=== PATIENT | male | born 1990 | race Two or more races ===

== ENCOUNTER 2023-09-07 08:13 | Emergency (ER) | payer BC, SELFPAY ==
[2023-09-07 08:21] VITALS: BP 143/85; PULSE 95; TEMP 36.6; O2SAT 98; BMI 38.4
--- NOTE | 2023-09-07 08:51 | XR_ITS ---
The [address] [address] Patient Name: BASILIO CARTWRIGHT MRN: [id number] date: 1990 Sex: M Assigned Patient Location: ER Current Patient Location: ER Accession/Order Number: [id number] Exam Date: 09/07/2023 09:17 Report Date: 09/07/2023 09:49 At the request of: LEONCIO FERNANDEZ Procedure: XR hip RT 2V w/ pelvis EXAM: XR hip RT 2V w/ pelvis HISTORY: pain, fall COMPARISON: None TECHNIQUE: Two-view right hip and AP view pelvis study was performed with 3 images obtained in total. FINDINGS: Small somewhat linear longitudinal lucency overlying the right femoral head and acetabular region which is nonspecific. The finding may be artifactually created. Possibility of nondisplaced right acetabular fracture difficult to exclude entirely. Right femoral neck fracture be unlikely. Sacroiliac joints appear grossly unremarkable. Visualized lower lumbar spine appears grossly unremarkable. Soft tissues are grossly within normal limits. XR/XR hip RT 2V w/ pelvis IMPRESSION: Possibility of undisplaced right acetabular fracture difficult to exclude entirely. Correlate clinically. Follow-up as needed. Electronically authenticated by: JULIO ESQUIVEL Date: 09/07/2023 09:49
--- NOTE | 2023-09-07 10:10 | CT_ITS ---
The [address] [address] Patient Name: BASILIO CARTWRIGHT MRN: [id number] date: 1990 Sex: M Assigned Patient Location: ER Current Patient Location: ER Accession/Order Number: [id number] Exam Date: 09/07/2023 10:03 Report Date: 09/07/2023 10:29 At the request of: LEONCIO FERNANDEZ Procedure: CT pelvis wo con EXAMINATION: CT pelvis wo con HISTORY: abn xray, right hip pain COMPARISON: Plain x-ray same day TECHNIQUE: Multi-planar CT images were created without IV contrast. Dose reduction techniques were achieved by using automated exposure control and/or adjustment of mA and/or kV according to patient size and/or use of iterative reconstruction technique. FINDINGS: BONES: Acute posterior column fracture involving the right acetabulum with the fracture fragment measuring 3.2 x 1.0 cm on coronal image #30. Minimal displacement of one millimeter. No angulation. Subtle lucency in the anterior column on axial image 57 could represent a nondisplaced second fracture. The proximal right femur is intact without fracture. No dislocation. SOFT TISSUES: Negative. No visible soft tissue swelling. EFFUSION: None visible. OTHER: Nonobstructive bowel gas pattern. Normal appendix. CT/CT pelvis wo con IMPRESSION: Acute 3.2 x 1.0 cm fracture posterior column of the right acetabulum Suspected nondisplaced fracture of the anterior column of the right acetabulum Electronically authenticated by: ALEXANDRE RODRIGUEZ Date: 09/07/2023 10:29
--- NOTE | 2023-09-07 10:47 | ED_ITS ---
HPI HPI - General Adult General Chief complaint: Extremity Injury, Lower Stated complaint: LOWER EXTREMITY PAIN Time Seen by Provider: 09/07/23 08:20 Source: patient Mode of arrival: walk-in Limitations: no limitations History of Present Illness HPI narrative: 32-year-old male to the emergency department with chief complaint of right-sided hip pain. Patient reports that he jumped over a small [place] yesterday. He landed on his right leg. Reports last night initially just had pain in his right ankle. Today woke up and he has severe pain in his right hip. He denies any other injuries. He reports painful to walk. He was able to bear weight. Related Data Allergies Allergy/AdvReac Type Severity Reaction Status Date / Time No Known Drug Allergies Allergy Verified 09/07/23 08:21 Opioid HPI Opioid Management Most Recent Opioid Data: Last Pain Scale 6 09/07/23 08:25 Last ED Pain Assessment 09/07/23 08:25 Review of Systems ROS Status of ROS 10 or more systems reviewed and unremark able except as noted in history and below Exam Narrative Exam Narrative: VITALS: I have reviewed the triage vital signs. GENERAL: Well developed, well appearing adult in no acute distress. NEURO: Alert and oriented. Moves all extremities. Face is symmetric and expressive. EYES: PERRL. No scleral icterus or conjunctival injection. No discharge. HENT: Normocephalic, atraumatic. Hearing is grossly intact. Nares grossly patent and without discharge. Mucous membranes moist. NECK: No JVD. Patient moves neck without restriction. Right Lower Extremity: DP and PT pulses intact. Limb is similar color and temperature to the contralateral limb. No swelling. No ecchymosis. No medial malleolus tenderness. No lateral malleolus tenderness. No tenderness at the base of the fifth metatarsal. No midfoot tenderness. No fibular head tenderness. Sensation is intact over the foot and lower leg. Dorsiflexion/plantar flexion, knee flexion/extension intact by strength testing. Range of motion. Tenderness in the pelvis. Pelvis is stable. SKIN: Warm and dry. Normal turgor. No rash or lesions appreciated. PSYCH: Mood, affect, and interaction is appropriate to the setting. Constitutional Vital Signs, click to edit/add: Last Vital Signs Temp 97.8 F 09/07/23 08:21 Pulse 88 09/07/23 10:50 Resp 14 09/07/23 10:50 BP 147/105 H 09/07/23 10:50 Pulse Ox 98 09/07/23 10:50 O2 Del Method Room Air 09/07/23 10:50 Course Vital Signs Vital signs: Vital Signs Temperature 97.8 F 09/07/23 08:21 Pulse Rate 95 H 09/07/23 08:21 Respiratory Rate 18 09/07/23 08:21 Blood Pressure 143/85 H 09/07/23 08:21 Pulse Oximetry 98 09/07/23 08:21 Temperature 97.8 F 09/07/23 08:21 Pulse Rate 88 09/07/23 10:50 Respiratory Rate 14 09/07/23 10:50 Blood Pressure 147/105 H 09/07/23 10:50 Pulse Oximetry 98 09/07/23 10:50 Oxygen Delivery Method Room Air 09/07/23 10:50 Medical Decision Making MDM Narrative Medical decision making narrative: 54-lmod[age]-wal male to the emergency department with chief complaint of right hip pain. Vital stable, the patient is afebrile. His right lower extremity is neurovascularly intact. We'll obtain an x-ray of the hip and pelvis. Question of fracture, we'll obtain a CT scan for better evaluation. Patient does have acetabular fracture of the anterior posterior column. We will review with the orthopedic surgeon signal and communications maintainer Dr. Conklin. Case reviewed with ortho surgery. Nonweightbearing likely for three months. Placed on crutches. He has a follow-up appointment on Thursday at 8:30 AM. Tylenol or ibuprofen for discomfort at home. Return motions were discussed. All questions were answered. The patient was discharged home. Imaging Data CT scan - abdomen: Radiologist's impression: ITS Impressions Hip/Pelvis X-Ray 09/07/23 08:51 IMPRESSION: Possibility of undisplaced right acetabular fracture difficult to exclude entirely. Correlate clinically. Follow-up as needed. Electronically authenticated by: JULIO ESQUIVEL Date: 09/07/2023 09:[address] 09/07/23 10:10 IMPRESSION: Acute 3.2 x 1.0 cm fracture posterior column of the right acetabulum Suspected nondisplaced fracture of the anterior column of the right acetabulum Electronically authenticated by: ALEXANDRE RODRIGUEZ Date: 09/07/2023 10:29 Discharge Plan Discharge Stand Alone Forms: Portal Instructions Chief Complaint: Extremity Injury, Lower Clinical Impression: Acetabulum fracture, right Patient Disposition: Home, Self-Care Time of Disposition Decision: 10:54 Condition: Good Mode of Transportation: Private Vehicle Print Language: Lao Instructions: Crutch Instructions (ED), Pelvic Fracture (ED) Referrals: Physician,Non-Staff, [Primary Care Provider] - 1 week Drew Conklin MD [Physician] - 1 week (YOU HAVE AN APPOINTMENT AT 0830 on 09/13. DO NOT WALK ON RIGHT LEG, USE CRUTCHES. )
[2023-09-07 10:50] VITALS: BP 147/105; PULSE 88; O2SAT 98
[2023-09-07 11:23] VITALS: PULSE 85; O2SAT 98
== END 2023-09-07 11:28 | disposition home or self-care (01) ==
PROVIDERS: Emergency Provider Student in an Organized Health Care Education/Training Program
DX: S32.434A Nondisplaced fracture of anterior column [iliopubic] of right acetabulum, initial encounter for closed fracture (principal); W19.XXXA Unspecified fall, initial encounter
CPT/HCPCS: 72192; 73502; 99284

== ENCOUNTER 2023-09-14 09:25 | Outpatient (OUT) | payer BC, SELFPAY ==
--- NOTE | 2023-09-14 | XR_ITS ---
The [address] [address] Patient Name: BASILIO CARTWRIGHT MRN: [id number] date: 1990 Sex: M Assigned Patient Location: Current Patient Location: Accession/Order Number: [id number] Exam Date: 09/14/2023 09:30 Report Date: 09/15/2023 06:30 At the request of: ALIVIA CABRERA Procedure: XR hip RT min 2V PROCEDURE: XR hip RT min 2V HISTORY: RIGHT HIP PAIN COMPARISON: XR hip right 09/07/2023, CT pelvis 09/07/2023 FINDINGS: BONES:Stable alignment of large, nondisplaced fracture of posterior rim of right acetabulum. Intact femoral head and neck. SOFT TISSUES:No visible soft tissue swelling. EFFUSION:None visible. OTHER: Negative. XR/XR hip RT min 2V IMPRESSION: 1. Stable, nondisplaced posterior rim fracture of right acetabulum. Electronically authenticated by: ALIVIA CARR Date: 09/15/2023 06:30
== END 2023-09-14 09:26 | disposition home or self-care (01) ==
LOC: EC 09:25
PROVIDERS: Visit Provider Orthopaedic Surgery
DX: M25.551 Pain in right hip (principal); S32.491D Other specified fracture of right acetabulum, subsequent encounter for fracture with routine healing
CPT/HCPCS: 73502

== ENCOUNTER 2024-01-12 12:06 | Emergency (ER) | payer BC, SELFPAY ==
[2024-01-12 12:11] VITALS: BP 173/88; PULSE 111; TEMP 36.7; O2SAT 96; BMI 36.9
--- OUTSIDE RECORDS SUMMARY | 2024-01-12 12:14 | XMS_ITS | CCD ---
Author Organization [facility] Inform ion Partnership [facility] Care Team Providers Care Receiving Barn Custodian Name Role Phone NO FAMILY DOCTOR, NO FAMILY DOCTOR Unavailable Unavailable SANDRA PORTER Unavailable Unavailable KOTA STONE Attending Unavailable NO PCP, NO PCP Primary Care Unavailable Allergies Allergy Classification Reported Allergen(s) Allergy Type Date of Onset Reaction(s) Facility (1 source) No Known Medication Allergies; Translations: [No Known Medication Allergies] Propensity to adverse reactions (disorder) [facility] Rep[facility] Problems Active Problems Problem Classification Problem Date Documented Date Episodic/Chronic Skin and subcutaneous tissue infections (3 sources) Pilonidal cyst with abscess; Translations: [Abscess] Onset: 11-13-2023 Episodic Unclassified (2 sources) Poisoning by heroin, accidental (unintentional), init encntr / T40.1X1A(ICD-9) Onset: 07-26-2017 Unclassified (1 source) Nicotine dependence, unspecified, uncomplicated / F17.200(ICD-9) Onset: 07-26-2017 Unclassified (1 source) Ot places as the place of occurrence of the external cause / Y92.89(ICD-9) Onset: 07-26-2017 Unclassified (1 source) Altered mental status, unspecified / R41.82(ICD-9) Onset: 07-26-2017 Past or Other Problems Problem Classification Problem Date Documented Da te Episodic/Chronic Unclassified (1 source) Altered mental status, unspecified; Translations: [Altered mental status, unspecified] Onset: 07-26-2017 Episodic Unclassified (1 source) Poisoning by heroin, accidental (unintentional), init encntr; Translations: [Poisoning by heroin, accidental (unintentional), init encntr] Onset: 07-26-2017 Results Test Name Value Interpretation Reference Range Facil ity Dipstick and Microscopicon 0 2-22-2022 Appearance (U) Clear Normal Clear [facility] Comment on above: Order Comment: Name Collection Type:: Voided Performed By: #### A DDONUAPLUS #### [address] Bacteria,Urine None Seen Normal None Seen [facility] Comment on above: Order Comment: Name Collection Type:: Voided Performed By: #### A DDONUAPLUS #### [place] [address] [place] Bilirubin,Urine Negative Normal Negative [facility] Comment on above: Order Comment: Name Collection Type:: Voided Performed By: #### A DDONUAPLUS #### [address] Color (U) Yellow Normal Yellow [facility] Comment on above: Order Comment: Name Collection Type:: Voided Performed By: #### A DDONUAPLUS #### [place] [address] [place] Glucose Ql (U) Normal Normal Normal [facility] Comment on above: Order Comment: Name Collection Type:: Voided Performed By: #### A DDONUAPLUS #### [place] [address] [place] Hyaline Casts,Urine 9-19 High 0-8 [facility] Comment on above: Order Comment: Name Collection Type:: Voided Result Comment: PERF ORMED BY: [place] [address] PATHOLOGIST RN BIRTHING JUAN LAY M.D. Performed By: #### A DDONUAPLUS #### [facility] [address] [place] [address] [place] Ketones Ql (U) Trace High Negative [facility] Comment on above: Order Comment: Name Collection Type:: Voided Performed By: #### A DDONUAPLUS #### [place] [address] [place] Leukocyte esterase Test strip Ql (U) Negative Normal Negative [facility] Comment on above: Order Comment: Name Collection Type:: Voided Performed By: #### A DDONUAPLUS #### [facility] [address] [place] [address] [place] Nitrite,Urine Negative Normal Negative [facility] Comment on above: Order Comment: Name Collection Type:: Voided Performed By: #### A DDONUAPLUS #### [place] [address] [place] Occult Blood,Urine Negative Normal Negative [facility] Comment on above: Order Comment: Name Collection Type:: Voided Result Comment: PERF ORMED BY: [place] [address] PATHOLOGIST RN BIRTHING JUAN LAY M.D. Performed By: #### A DDONUAPLUS #### [address] pH (U) 5.5 [pH] Normal 5.0-9.0 [facility] Comment on above: Order Comment: Name Collection Type:: Voided Performed By: #### A DDONUAPLUS #### [address] Protein (U) [Mass/Vol] 30 mg/dL High Negative [facility] Comment on above: Order Comment: Name Collection Type:: Voided Performed By: #### A DDONUAPLUS #### [facility] [address] [place] [address] RBC,Urine 1-2 Normal 0-4 [facility] Comment on above: Order Comment: Name Collection Type:: Voided Performed By: #### A DDONUAPLUS #### [address] Renal Epithelial Cells,Urine None Seen Normal 0-1 [facility] Comment on above: Order Comment: Name Collection Type:: Voided Performed By: #### A DDONUAPLUS #### [facility] [address] [place] [address] [place] Specificy [place],Urine 1.019 Normal 1.001-1.030 [facility] Comment on above: Order Comment: Name Collection Type:: Voided Performed By: #### A DDONUAPLUS #### [facility] [address] [place] [address] [place] Squamous Epithelial Cell,Urine 1-2 Normal 0-2 [facility] Comment on above: Order Comment: Name Collection Type:: Voided Performed By: #### A DDONUAPLUS #### [facility] [address] Urobilinogen,Urine Normal Normal Normal [facility] Comment on above: Order Comment: Name Collection Type:: Voided Performed By: #### A DDONUAPLUS #### [facility] [address] WBC,Urine 5-9 High 0-4 [facility] Comment on above: Order Comment: Name Collection Type:: Voided Performed By: #### A DDONUAPLUS #### [facility] [address] Encounters Encounter Date Encounter Type Care Provider Facility Start: 11-13-2023 End: 11-13-2023 Emergency department patient visit [facility] Start: 12-24-2022 ambulatory Facility:Jaylon Salazaril Start: 07-26-2017 End: 07-26-2017 Emergency department patient visit NO FAMILY DOCTOR NO FAMILY DOCTOR Facility:[facility] Payers Date Payer Category Payer Self-pay 1990 Unknown [id number] Summary Purpose Family History No Family History Records FoundNo Family History Records FoundNo Family History Records FoundNo Family History Records Found Advance Directives No Advanced Directives Records FoundNo Advanced Directives Records FoundNo Advanced Directives Records FoundNo Advanced Directives Records Found Additional Source Comments (unrecognized sect ion and content) No Status Records FoundNo Status Records FoundNo Status Records FoundNo Status Records Found INFORMATION SOURCE (unrecogn ized section and content) DATE CREATED AUTHOR 11/06/2017 [facility] DATE CREATED AUTHOR AUTHOR'S ORGANIZ ATION 07/15/2021 [facility] DATE CREATED AUTHOR AUTHOR'S ORGANIZ ATION 11/15/2023 [facility] DATE CREATED AUTHOR AUTHOR'S GUME ATION 01/10/2024 [facility] FOR RECORDS PERTAINING TO PATIENTS WHO ARE OR HAVE BEEN ENROLLED IN A CHEMICAL DEPENDENCY/SUBSTANCEABUSE PROGRAM, SOME INFORMATION MAY BE OMITTED. This clinical summary was aggregated from multiple sources. Caution should be exercised in using it in the provision of clinical care. This summary normalizes information from multiple sources, and as a consequence, information in this document may materially change the coding, format and clinical context of patient data. In addition, data may be omitted in some cases. CLINICAL DECISIONS SHOULD BE BASED ON THE PRIMARY CLINICAL RECORDS. [facility]. provides no warranty or guarantee of the accuracy or completeness of information in this document.
--- NOTE | 2024-01-12 12:22 | ED_ITS ---
HPI HPI - General Adult General Chief complaint: Allergic Reaction Stated complaint: EYE IRRITATION AND SWELLING Time Seen by Provider: 01/12/24 12:07 History of Present Illness HPI narrative: Patient was seen complaining of facial swelling periorbital swelling, rash and itching. He has a rash that started on the right arm and is spread to the chest and now face he also has some on the back of his neck. He was cutting weeds and things in the yard over the weekend and then started Thursday getting this rash and when he woke up today it was worse so he came in. He was worried about the swelling around the eyes so he came in for further evaluation. He also feels like his throat is slightly itchy. No shortness of breath no wheezing no hypoxia no stridor. No other exposure to known allergies or anything new. Alert and oriented resting comfortably in the bed. Related Data Previous Rx's ?Medication ?Instructions ?Recorded prednisone 20 mg tablet 20 mg PO BID see taper #20 tabs 01/12/24 Allergies Allergy/AdvReac Type Severity Reaction Status Date / Time No Known Drug Allergies Allergy Verified 09/07/23 08:21 Opioid HPI Opioid Management Most Recent Opioid Data: Last Pain Scale 6 09/07/23 08:25 Review of Systems ROS Status of ROS 10 or more systems reviewed and unremark able except as noted in history and below Exam Narrative Exam Narrative: General: alert, no acute distress Cardiovascular: regular rate and rhythm, normal peripheral perfusion. Respiratory: Lungs CTA, respirations non labored. Extremities: no deformity, no trauma. Neurological: oriented x 4, LOC appropriate for age. Patient's skin has maculopapular erythematous rash on the right arm left side of the chest back of the neck and face. Mild periorbital edema. No uvular edema no stridor or respiratory distress or wheezing. Rash is sometimes in the linear fashion consistent with most likely poison tamy. Constitutional Vital Signs, click to edit/add: Last Vital Signs Temp 98.1 F 01/12/24 12:11 Pulse 111 H 01/12/24 12:11 Resp 18 01/12/24 12:11 BP 173/88 H 01/12/24 12:11 Pulse Ox 96 01/12/24 12:11 O2 Del Method Room Air 01/12/24 12:11 Course Vital Signs Vital signs: Vital Signs Temperature 98.1 F 01/12/24 12:11 Pulse Rate 111 H 01/12/24 12:11 Respiratory Rate 18 01/12/24 12:11 Blood Pressure 173/88 H 01/12/24 12:11 Pulse Oximetry 96 01/12/24 12:11 Oxygen Delivery Method Room Air 01/12/24 12:11 Temperature 98.1 F 01/12/24 12:11 Pulse Rate 111 H 01/12/24 12:11 Respiratory Rate 18 01/12/24 12:11 Blood Pressure 173/88 H 01/12/24 12:11 Pulse Oximetry 96 01/12/24 12:11 Oxygen Delivery Method Room Air 01/12/24 12:11 Medical Decision Making MDM Narrative Medical decision making narrative: This is most likely a contact dermatitis like poison tamy or poison oak due to the patient needing over the weekend and then coming down with this itchy rash. Patient will be started on steroids here in the ED and sent home with a taper. Return to ED if worsening symptoms otherwise follow-up with family doctor. Differential Diagnosis Differential Diagnosis: Poison tamy poison oak poison sumac Discharge Plan Discharge Stand Alone Forms: Work/School Release, Portal Instructions Chief Complaint: Allergic Reaction Clinical Impression: Contact dermatitis Patient Disposition: Home, Self-Care Time of Disposition Decision: 12:18 Condition: Good Mode of Transportation: Private Vehicle Prescriptions / Home Meds: New prednisone 20 mg tablet 20 mg PO BID MDD follow taper instructions plz Qty: 20 0RF Rx Instructions: Taper and dispense as follows: 60 mg po daily x 2 days 50 mg x 2 days 40 mg x 2 days 30 mg x 2 days 20 mg x 2 days 10 mg x 2 days Print Language: Tongan Instructions: Contact Dermatitis (ED) Referrals: Physician,Non-Staff, MD [Primary Care Provider] - 1 week
[2024-01-12] MEDS: DEXAMETHASONE 4 MG TABLET 10 MG PO (12:37)
[2024-01-12 12:39] VITALS: BP 136/88; PULSE 96; O2SAT 98
== END 2024-01-12 12:40 | disposition home or self-care (01) ==
PROVIDERS: Emergency Provider Emergency Medicine
DX: L25.9 Unspecified contact dermatitis, unspecified cause (principal)
CPT/HCPCS: 99283; J8540

== ENCOUNTER 2024-04-18 13:16 | Emergency (ER) | payer MEDICAID, SELFPAY ==
[2024-04-18 13:27] VITALS: BP 156/105; PULSE 98; TEMP 36.5; O2SAT 99; BMI 35.4
--- OUTSIDE RECORDS SUMMARY | 2024-04-18 13:35 | XMS_ITS | CCD ---
Author Organization [facility] Inform ion Partnership [facility] Care Team Providers Care School Director Name Role Phone NO FAMILY DOCTOR, NO FAMILY DOCTOR Unavailable Unavailable SANDRA PORTER Unavailable Unavailable KOTA STONE Attending Unavailable NO PCP, NO PCP Primary Care Unavailable Allergies Allergy Classification Reported Allergen(s) Allergy Type Date of Onset Reaction(s) Facility (1 source) No Known Medication Allergies; Translations: [No Known Medication Allergies] Propensity to adverse reactions (disorder) [facility] Repository Problems Active Problems Problem Classification [...] 0 2-22-2022 Appearance (U) Clear Normal Clear [facility] Comment on above: Order Comment: Name Collection Type:: Voided Performed By: #### A DDONUAPLUS #### [address] Bacteria,Urine None Seen Normal None Seen [facility] Comment on above: Order Comment: Name Collection Type:: Voided Performed By: #### A DDONUAPLUS #### [place] [address] [place] Bilirubin,Urine Negative Normal Negative [facility] Comment on above: Order Comment: Name Collection Type:: Voided Performed By: #### A DDONUAPLUS #### [address] Color (U) Yellow Normal Yellow [facility] Comment on above: Order Comment: Name Collection Type:: Voided Performed By: #### A DDONUAPLUS #### [place] [address] [place] Glucose Ql (U) Normal Normal Normal [facility] Comment on above: Order Comment: Name Collection Type:: Voided Performed By: #### A DDONUAPLUS #### [place] [address] [place] Hyaline Casts,Urine 9-19 High 0-8 [facility] Comment on above: Order Comment: Name Collection Type:: Voided Result Comment: PERF ORMED BY: [place] [address] PATHOLOGIST CLOTHING MANAGER JUAN LAY M.D. Performed By: #### A DDONUAPLUS #### [facility] [address] [place] [address] [place] Ketones Ql (U) Trace High Negative [facility] Comment on above: Order Comment: Name Collection Type:: Voided Performed By: #### A DDONUAPLUS #### [place] [address] [place] Leukocyte esterase Test strip Ql (U) Negative Normal Negative [facility] Comment on above: Order Comment: Name Collection Type:: Voided Performed By: #### A DDONUAPLUS #### [facility] [address] [place] [address] [place] Nitrite,Urine Negative Normal Negative [facility] Comment on above: Order Comment: Name Collection Type:: Voided Performed By: #### A DDONUAPLUS #### [place] [address] [place] Occult Blood,Urine Negative Normal Negative [facility] Comment on above: Order Comment: Name Collection Type:: Voided Result Comment: PERF ORMED BY: [place] [address] PATHOLOGIST CLOTHING MANAGER JUAN LAY M.D. Performed By: #### A DDONUAPLUS #### [address] pH (U) 5.5 [pH] Normal 5.0-9.0 [facility] Comment on above: Order Comment: Name Collection Type:: Voided Performed By: #### A DDONUAPLUS #### [address] Protein (U) [Mass/Vol] 30 mg/dL High Negative [facility] Comment on above: Order Comment: Name Collection Type:: Voided Performed By: #### A DDONUAPLUS #### [facility] [address] [place] [address] RBC,Urine 1-2 Normal 0-4 [facility] Comment on above: Order Comment: Name Collection Type:: Voided Performed By: #### A DDONUAPLUS #### [address] Renal Epithelial Cells,Urine None Seen Normal 0-1 [facility] Comment on above: Order Comment: Name Collection Type:: Voided Performed By: #### A DDONUAPLUS #### [facility] [address] [place] [address] [place] Specificy [place],Urine 1.019 Normal 1.001-1.030 [facility] Comment on above: Order Comment: Name Collection Type:: Voided Performed By: #### A DDONUAPLUS #### [facility] [address] [place] [address] [place] Squamous Epithelial Cell,Urine 1-2 Normal 0-2 [facility] Comment on above: Order Comment: Name Collection Type:: Voided Performed By: #### A DDONUAPLUS #### [facility] [address] Urobilinogen,Urine Normal Normal Normal [facility] Comment on above: Order Comment: Name Collection Type:: Voided Performed By: #### A DDONUAPLUS #### [facility] [address] WBC,Urine 5-9 High 0-4 [facility] Comment on above: Order Comment: Name Collection Type:: Voided Performed By: #### A DDONUAPLUS #### [facility] [address] Encounters Encounter Date Encounter Type Care Provider Facility Start: 11-13-2023 End: 11-13-2023 Emergency department patient visit [facility] Start: 12-24-2022 ambulatory Facility:Jaylon Salazaril Start: 07-26-2017 End: 07-26-2017 Emergency department patient visit NO FAMILY DOCTOR NO FAMILY DOCTOR Facility:[facility] Payers Date Payer Category Payer Self-pay 1990 Unknown [id number] Summary Purpose Family History No Family History [...] section and content) DATE CREATED AUTHOR 11/06/2017 [facility] DATE CREATED AUTHOR AUTHOR'S ORGANIZ ATION 07/15/2021 [facility] DATE CREATED AUTHOR AUTHOR'S ORGANIZ ATION 11/15/2023 [facility] DATE CREATED AUTHOR AUTHOR'S GUME ATION 01/10/2024 [facility] FOR RECORDS PERTAINING TO PATIENTS WHO [...] BE BASED ON THE PRIMARY CLINICAL RECORDS. [facility] [place] [facility] [employer] [facility]. provides no warranty or guarantee of the accuracy or completeness of information in this document.
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
[2024-04-18] MEDS: METHYLPREDNISOLONE SOD SUCC PF 125 MG/2 ML VIAL IM (13:46)
== END 2024-04-18 13:52 | disposition home or self-care (01) ==
PROVIDERS: Emergency Provider Emergency Medicine
DX: L25.9 Unspecified contact dermatitis, unspecified cause (principal)
CPT/HCPCS: 96372; 99284; J2919

== ENCOUNTER 2024-08-18 07:59 | Emergency (ER) | payer MEDICAID, SELFPAY ==
[2024-08-18 08:06] VITALS: BP 157/96; PULSE 90; TEMP 37.1; O2SAT 98; BMI 35.4
[2024-08-18] MEDS: ACETAMINOPHEN 325 MG TABLET 650 MG PO (09:02)
[2024-08-18] MEDS: KETOROLAC TROMETHAMINE 60 MG/2 ML VIAL IM (09:03)
[2024-08-18] MEDS: ADACEL DIPH,PERTUSS(ACELL),TET VAC/PF 0.5 ML ADULT SYRINGE IM (09:03)
[2024-08-18] MEDS: BACITRACIN OINTMENT 28.4 GM TUBE 1 APPLIC TOPICAL (09:04)
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
== END 2024-08-18 09:26 | disposition home or self-care (01) ==
PROVIDERS: Emergency Provider Emergency Medicine
DX: T21.5 Corrosion of first degree of trunk (principal); T22.50XA Corrosion of first degree of shoulder and upper limb, except wrist and hand unspecified site, initial encounter; T65.891A Toxic effect of other specified substances, accidental (unintentional), initial encounter; T32.0 Corrosions involving less than 10% of body surface; Z23 Encounter for immunization
CPT/HCPCS: 90471; 90715; 96372; 99284; J1885

== ENCOUNTER 2024-08-19 12:33 | Emergency (ER) | payer MEDICAID, SELFPAY ==
[2024-08-19 12:37] VITALS: BP 163/98; PULSE 111; TEMP 37.2; O2SAT 97; BMI 34.5
--- OUTSIDE RECORDS SUMMARY | 2024-08-19 12:58 | XMS_ITS | CCD ---
Author Organization [facility] Inform ion Partnership [facility] Care Team Providers Care Steel Spar Operator Name Role Phone NO FAMILY DOCTOR, NO FAMILY DOCTOR Unavailable Unavailable SANDRA PORTER Unavailable Unavailable KOTA STONE Attending Unavailable NO PCP, NO PCP Primary Care Unavailable Allergies Allergy Classification Reported Allergen(s) Allergy Type Date of Onset Reaction(s) Facility (1 source) No Known Medication Allergies; Translations: [No Known Medication Allergies] Propensity to adverse reactions (disorder) [facility] Repository Problems Active Problems Problem Classification Problem [...] 0 2-22-2022 Appearance (U) Clear Normal Clear [facility] Comment on above: Order Comment: Name Collection Type:: Voided Performed By: #### A DDONUAPLUS #### [address] Bacteria,Urine None Seen Normal None Seen [facility] Comment on above: Order Comment: Name Collection Type:: Voided Performed By: #### A DDONUAPLUS #### [place] [address] [place] Bilirubin,Urine Negative Normal Negative [facility] Comment on above: Order Comment: Name Collection Type:: Voided Performed By: #### A DDONUAPLUS #### [address] Color (U) Yellow Normal Yellow [facility] Comment on above: Order Comment: Name Collection Type:: Voided Performed By: #### A DDONUAPLUS #### [place] [address] [place] Glucose Ql (U) Normal Normal Normal [facility] Comment on above: Order Comment: Name Collection Type:: Voided Performed By: #### A DDONUAPLUS #### [place] [address] [place] Hyaline Casts,Urine 9-19 High 0-8 [facility] Comment on above: Order Comment: Name Collection Type:: Voided Result Comment: PERF ORMED BY: [place] [address] PATHOLOGIST NAILER MACHINE JUAN LAY M.D. Performed By: #### A DDONUAPLUS #### [facility] [address] [place] [address] [place] Ketones Ql (U) Trace High Negative [facility] Comment on above: Order Comment: Name Collection Type:: Voided Performed By: #### A DDONUAPLUS #### [place] [address] [place] Leukocyte esterase Test strip Ql (U) Negative Normal Negative [facility] Comment on above: Order Comment: Name Collection Type:: Voided Performed By: #### A DDONUAPLUS #### [facility] [address] [place] [address] [place] Nitrite,Urine Negative Normal Negative [facility] Comment on above: Order Comment: Name Collection Type:: Voided Performed By: #### A DDONUAPLUS #### [place] [address] [place] Occult Blood,Urine Negative Normal Negative [facility] Comment on above: Order Comment: Name Collection Type:: Voided Result Comment: PERF ORMED BY: [place] [address] PATHOLOGIST NAILER MACHINE JUAN LAY M.D. Performed By: #### A DDONUAPLUS #### [address] pH (U) 5.5 [pH] Normal 5.0-9.0 [facility] Comment on above: Order Comment: Name Collection Type:: Voided Performed By: #### A DDONUAPLUS #### [address] Protein (U) [Mass/Vol] 30 mg/dL High Negative [facility] Comment on above: Order Comment: Name Collection Type:: Voided Performed By: #### A DDONUAPLUS #### [facility] [address] [place] [address] RBC,Urine 1-2 Normal 0-4 [facility] Comment on above: Order Comment: Name Collection Type:: Voided Performed By: #### A DDONUAPLUS #### [address] Renal Epithelial Cells,Urine None Seen Normal 0-1 [facility] Comment on above: Order Comment: Name Collection Type:: Voided Performed By: #### A DDONUAPLUS #### [facility] [address] [place] [address] [place] Specificy [place],Urine 1.019 Normal 1.001-1.030 [facility] Comment on above: Order Comment: Name Collection Type:: Voided Performed By: #### A DDONUAPLUS #### [facility] [address] [place] [address] [place] Squamous Epithelial Cell,Urine 1-2 Normal 0-2 [facility] Comment on above: Order Comment: Name Collection Type:: Voided Performed By: #### A DDONUAPLUS #### [facility] [address] Urobilinogen,Urine Normal Normal Normal [facility] Comment on above: Order Comment: Name Collection Type:: Voided Performed By: #### A DDONUAPLUS #### [facility] [address] WBC,Urine 5-9 High 0-4 [facility] Comment on above: Order Comment: Name Collection Type:: Voided Performed By: #### A DDONUAPLUS #### [facility] [address] Encounters Encounter Date Encounter Type Care Provider Facility Start: 11-13-2023 End: 11-13-2023 Emergency department patient visit [facility] Start: 12-24-2022 ambulatory Facility:Jaylon Salazaril Start: 07-26-2017 End: 07-26-2017 Emergency department patient visit NO FAMILY DOCTOR NO FAMILY DOCTOR Facility:[facility] Payers Date Payer Category Payer Self-pay 1990 Unknown [id number] Summary Purpose Family History No Family History [...] section and content) DATE CREATED AUTHOR 11/06/2017 [facility] DATE CREATED AUTHOR AUTHOR'S ORGANIZ ATION 07/15/2021 [facility] DATE CREATED AUTHOR AUTHOR'S ORGANIZ ATION 11/15/2023 [facility] DATE CREATED AUTHOR AUTHOR'S GUME ATION 01/10/2024 [facility] FOR RECORDS PERTAINING TO PATIENTS WHO [...] ON THE PRIMARY CLINICAL RECORDS. [facility] [employer] [facility]. provides no warranty or guarantee of the accuracy or completeness of information in this document.
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
[2024-08-19 14:41] LABS: Glucometer 94 mg/dL (74-106)
[2024-08-19] MEDS: LACTATED RINGER'S SOLUTION 1,000 ML 999 ML IV (15:05)
[2024-08-19] MEDS: KETOROLAC TROMETHAMINE 30 MG/ML VIAL IVP (15:06)
[2024-08-19 15:09] LABS: Basophils Percent Auto 0.4 % (0.2-2.0); Eosinophils Absolute Auto 0.5 10^3/uL (0.0-0.7); Hematocrit 43.8 % (42.0-54.0); Hemoglobin 15.2 g/dL (14.0-18.0); Immature Granulocytes Abs Auto 0.03 10^3/uL (0.00-0.03); Immature Granulocytes Pct Auto 0.4 % (0.0-0.5); Lymphocytes Absolute Auto 2.6 10^3/uL (1.2-3.8); Lymphocytes Percent Auto 30.4 % (20.5-60.0); Mean Corpuscular HGB Conc 34.7 g/dL (29.9-35.2); Mean Corpuscular Volume 89.2 fL (80.0-94.0); Mean Platelet Volume 9.3 fL (9.5-13.5); Monocytes Absolute Auto 0.5 10^3/uL (0.3-0.8); Monocytes Percent Auto 6.1 % (1.7-12.0); Neutrophils Absolute Auto 4.9 10^3/uL (1.4-6.5); Neutrophils Percent Auto 56.7 % (43.0-75.0); Platelet Count 183 10^3/uL (150-450); Red Blood Count 4.91 10^6/uL (4.70-6.10); Red Cell Distribution Width 12.1 % (11.0-15.0); White Blood Count 8.5 10^3/uL (4.0-11.0)
[2024-08-19 15:13] LABS: PCO2 VBG 34.8 mmHg (40.0-52.0); pH VBG 7.443 (7.330-7.430)
[2024-08-19] MEDS: CEFAZOLIN SODIUM/DEXTROSE,ISO 2 GM/50 ML PIGGYBACK IV (15:16)
[2024-08-19 15:22] LABS: Acetone NEGATIVE (NEGATIVE)
[2024-08-19 15:27] LABS: Alanine Aminotransferase 278 U/L (16-63); Albumin Globulin Ratio 0.7; Albumin Level 3.3 g/dL (3.4-5.0); Alkaline Phosphatase 105 U/L (46-116); Anion Gap 11.7; Aspartate Amino Transferase 181 U/L (15-37); BUN Creatinine Ratio 17.4; Bilirubin Total 0.5 mg/dL (0.2-1.0); Calcium 8.9 mg/dL (8.5-10.1); Carbon Dioxide 26.9 mmol/L (21.0-32.0); Chloride 102 mmol/L (98-107); Estimated GFR (African America >60 (>=60 mL/min/1.73m^2); Estimated GFR (Non-African Ame >60 (>=60 mL/min/1.73m^2); Globulin 4.8 g/dL; Glucose 103 mg/dL (74-106); Potassium 3.6 mmol/L (3.5-5.1); Sodium 137 mmol/L (136-145); Total Protein 8.1 g/dL (6.4-8.2)
[2024-08-19 15:38] LABS: INR 1.01; Partial Thromboplastin Time 28.2 sec (22.3-36.2); Prothrombin Time 10.7 sec (9.0-11.6)
[2024-08-19 15:39] LABS: Lactate/Lactic Acid 2.1 mmol/L (0.4-2.0)
[2024-08-19 16:00] VITALS: BP 142/74; PULSE 80; TEMP 36.8; O2SAT 98
[2024-08-19 16:37] VITALS: BP 153/84; PULSE 79; O2SAT 98
== END 2024-08-19 16:39 | disposition short-term general hospital (02) ==
PROVIDERS: Physician Assistant; Emergency Provider Emergency Medicine
DX: T22.60XA Corrosion of second degree of shoulder and upper limb, except wrist and hand, unspecified site, initial encounter (principal); T21.61XA Corrosion of second degree of chest wall, initial encounter; T21.62XA Corrosion of second degree of abdominal wall, initial encounter; T32.11 Corrosions involving 10-19% of body surface with 10-19% third degree corrosion; T65.891A Toxic effect of other specified substances, accidental (unintentional), initial encounter; E11.9 Type 2 diabetes mellitus without complications; Z79.4 Long term (current) use of insulin; F11.20 Opioid dependence, uncomplicated
CPT/HCPCS: 36415; 80053; 82009; 82800; 82948; 83605; 85025; 85610; 85730; 87040; 96365; 96375; 99285; J0690; J1885

== ENCOUNTER 2024-10-31 07:20 | Emergency (ER) | payer MEDICAID, SELFPAY ==
[2024-10-31 07:23] VITALS: BP 130/69; PULSE 77; TEMP 37.2; O2SAT 99; BMI 32.5
--- OUTSIDE RECORDS SUMMARY | 2024-10-31 07:28 | XMS_ITS | CCD ---
Author Organization [facility] Care Team Providers Care Anode Builder Name Role Phone NO FAMILY DOCTOR, NO FAMILY DOCTOR Unavailable Unavailable SANDRA PORTER Unavailable Unavailable KOTA STONE Attending Unavailable NO PCP, NO PCP Primary Care Unavailable Unavailable Primary Care Provider UnavailDREW Barbour Attending Unavailable DREW ESTEVES Consulting Unavailable DREW ESTEVES Admitting Unavailable Allergies Allergy Classification Reported Allergen(s) Allergy Type Date of Onset Reaction(s) Facility (1 source) No Known Medication Allergies; Translations: [No Known Medication Allergies] Propensity to adverse reactions (disorder) [facility] Repository Medications Current Medications Medication Drug Class(es) Dates Sig (Normalized) Sig (Original) gabapentin 300 mg oral capsule (2 sources) Anti-epileptic Agent Start: 08-19-2024 End: 08-29-2024 take 1 capsule by mouth every eight hours gabapentin (NEURONTIN) 300 MG capsule Take 1 capsule by mouth every 8 (eight) hours for 7 days. 21 capsule 08/22/2024 08/29/2024 Active methocarbamol 750 mg oral tablet (2 sources) Muscle Relaxant Start: 08-19-2024 End: 08-29-2024 take 1 tablet by mouth every six hours methocarbamol (ROBAXIN) 750 MG tablet Take 1 tablet by mouth every 6 hours for 7 days 28 tablet 08/22/2024 08/29/2024 Active oxyCODONE hydrochloride 5 mg oral tablet (6 sources) Opioid Agonist Start: 08-22-2024 End: 08-29-2024 take 1 tablet by mouth every eight hours as needed for pain oxyCODONE (ROXICODONE) 5 MG immediate release tablet Indications: Partial thickness chemical burn of chest wall, initial encounter Take 1 tablet by mouth every 8 hours as needed for Pain (use only for dressing changes daily.) for up to 7 days. Intended supply: 3 days. Take lowest dose possible to manage pain Max Daily Amount: 15 mg 21 tablet 08/22/2024 08/29/2024 Active Start: 08-22-2024 End: 08-23-2024 take 5 mg by mouth once as needed for pain 5 mg, Oral, PRN, Starting on Thu08/22/24 at 1248, Until Thu08/23/24 at 1247, Pain Moderate (4-6), allowed for higher pain score per patient request, dressing changes Start: 08-21-2024 End: 08-21-2024 take 1 dose by mouth once 5 mg, Oral, Once, 1 dose, On 08/21/24 at 0015 Start: 08-20-2024 End: 08-22-2024 5 mg, Oral, EVERY 4 HOURS SC HEDULED (6 times per day), First dose (after last modification) on 08/20/24 at 1600, Until Discontinued Start: 08-19-2024 End: 08-20-2024 take 5 mg by mouth every four hours as needed for pain 5 mg, Oral, EVERY 4 HOURS PRN, Starting on Thu08/19/24 at 1918, Until Thu08/20/24 at 1355, Pain Severe (7-10) Start: 08-19-2024 End: 08-19-2024 take 1 dose by mouth once 5 mg, Oral, Once, 1 dose, On Thu08/19/24 at 1900 silver sulfADIAZINE 10 mg/ml topical cream (2 sources) Sulfonamide Antibacterial Start: 08-22-2024 silver sulfADIAZINE (SILVADENE) 1 % cream Apply topically daily. 1000 g 4 08/22/2024 Active Start: 08-20-2024 apply 1 dose topically twice d aily Topical, 2 TIMES DAILY, First dose on 08/20/24 at 2100, Apply to lewis. Completed/Discontinued Medications Medication Drug Class(es) Dates Sig (Normalized) Sig (Original) acetaminophen 500 mg oral tablet (1 source) Start: 08-19-2024 take 1 tablet by mouth every eight hours 1,000 mg, Oral, Every 8 hours, First dose on Thu08/19/24 at 1930, Until Discontinued, Maximum dose of acetaminophen is 4000 mg from all sources in 24 hours. bacitracin 0.5 unt/mg topical ointment (2 sources) Start: 08-19-2024 End: 08-20-2024 Topical, 2 TIMES DAILY, First dose on Thu08/20/24 at 0945, Apply to lewis twice daily. buprenorphine 8 mg / naloxone 2 mg sublingual tablet (2 sources) Partial Opioid Agonist, Opioid Antagonist Start: 08-19-2024 take 1 tablet under the tongue twice daily 1 tablet, SubLINGual, 2 times daily, First dose on Thu08/19/24 at 2100, Until Discontinued buprenorphine-na loxone (SUBOXONE) 8-[address] film Place 1 Film under the tongue daily. Max Daily Amount: 1 Film Active 0.4 ml enoxaparin sodium 100 mg/ml prefilled syringe (1 source) Low Molecular Weight Heparin Start: 08-19-2024 inject 40 mg by subcutaneous injection twice daily 40 mg, SubCUTAneous, 2 TIMES DAILY, First dose on Thu08/19/24 at 2100, Until Discontinued, Indication of Use: Prophylaxis-DVT/PE, Administer by deep subCUTAneous injection with pt lying down. Alternate injection sites on abdominal wall. Do not rub site after injection. Check with provider prior to any invasive procedure. 1 ml HYDROmorphone hydrochloride 1 mg/ml cartridge (4 sources) Opioid Agonist Start: 08-20-2024 End: 08-21-2024 take 0.5 mg by mouth every three hours as needed for pain 0.5 mg, IntraVENous, EVERY 3 HOURS PRN, Starting on Thu08/20/24 at 1800, Until 08/21/24 at 1049, Pain Severe (7-10), If oral and IV narcotics ordered, use oral first and only use IV if oral is ineffective or cannot take oral. Do Not give oral and IV within 1 hour of each other unless specifically ordered. Start: 08-19-2024 End: 08-19-2024 take 0.5 mg by mouth once 0.5 mg, IntraVENous, ONCE, 1 dose, On Thu08/19/24 at 2300, If oral and IV narcotics ordered, use oral first and only use IV if oral is ineffective or cannot take oral. Do Not give oral and IV within 1 hour of each other unless specifically ordered. Start: 08-19-2024 End: 08-20-2024 take 0.25 mg by mouth every four hours as needed 0.25 mg, IntraVENous, EVERY 4 HOURS PRN, Starting on Thu08/19/24 at 2209, Until 08/20/24 at 1355, for burn debridement, If oral and IV narcotics ordered, use oral first and only use IV if oral is ineffective or cannot take oral. Do Not give oral and IV within 1 hour of each other unless specifically ordered. Start: 08-19-2024 End: 08-19-2024 take 0.25 mg by mouth every hour as needed 0.25 mg, IntraVENous, PRN, Starting on Thu08/19/24 at 1919, Until Thu08/19/24 at 2210, for burn debridement, If oral and IV narcotics ordered, use oral first and only use IV if oral is ineffective or cannot take oral. Do Not give oral and IV within 1 hour of each other unless specifically ordered. hydrOXYzine hydrochloride 10 mg oral tablet (2 sources) Antihistamine Start: 08-22-2024 End: 08-22-2024 take 1 dose by mouth once 10 mg, Oral, Once, 1 dose, On Thu08/22/24 at 1530 Start: 08-20-2024 End: 08-22-2024 take 10 mg by mouth three times daily as needed 10 mg, Oral, 3 TIMES DAILY PRN, Starting on 08/20/24 at 0017, Until Thu08/22/24 at 1244, Itching insulin lispro 100 unt/ml injectable solution (1 source) Insulin Analog Start: 08-19-2024 End: 08-22-2024 0-16 Units, SubCUTAneous, 4 TIMES DAILY BEFORE MEALS & NIGHTLY, First dose on Thu08/19/24 at 2100, Until Discontinued, High Dose Corrective Algorithm Glucose: Dose: 70-179 No Insulin 180-249 4 Units 250-299 8 Units 300-349 12 Units Over 349 16 Units and notify physician Administer as soon as possible within 60 minutes of last blood glucose check 1 ml ketorolac tromethamine 15 mg/ml cartridge (1 source) Nonsteroidal Anti-inflammatory Drug, Cyclooxygenase Inhibitor Start: 08-21-2024 End: 08-22-2024 15 mg, IntraVENous, EVERY 6 HOURS SCHEDULED (4 times per day), 20 doses, First dose on Thu08/21/24 at 1200, Last dose on Thu08/26/24 at 0600, Do not administer for more than 5 days potassium bicarbonate 20 meq effervescent oral tablet (1 source) Start: 08-20-2024 End: 08-20-2024 take 3-4 tablets by mouth once 40 mEq, Oral, ONCE, 1 dose, On Thu08/20/24 at 0415, Do not chew or crush. Dissolve flavored tablets completely in 3 to 4 ounces of cold water; unflavored tablets may be dissolved in 3 to 4 ounces of cold juice. Patient to sip slowly over a 5 to 10 minute period. May further dilute if GI adverse effects occur. 5 ml sodium chloride 9 mg/ml injection (3 sources) Start: 08-19-2024 5-40 mL, IntraVENous, EVERY 12 HOURS SCHEDULED (2 times per day), First dose on Thu08/19/24 at 2100, Until Discontinued, For Line Patency: Peripheral IV = 5 mL; Midline or Central Line = 10 mL/lumen. If following IV push medication, administer flush at same rate as the IV push. Flush volume is determined by type of infusion therapy being given. For non-viscous solutions use: Peripheral IV = 5 mL Midline or Central Line = 10 mL/lumen For viscous solutions (i.e. blood components, parenteral nutrition, contrast media, or after obtaining blood sample) use: Peripheral IV = 10 mL Midline or Central Line = 20 mL/lumen Start: 08-19-2024 End: 08-19-2024 1,000 mL (9.18 mL/kg), Intra VENous, at 1,000 mL/hr, Administer over 1 Hours, ONCE, On Thu08/19/24 at 1845, For 1 dose Start: 08-19-2024 5-40 mL, Intra VENous, PRN, Starting on Thu08/19/24 at 1916, Until Discontinued, Line Care, After every IV line use, For Line Patency: Peripheral IV = 5 mL; Midline or Central Line = 10 mL/lumen. If following IV push medication, administer flush at same rate as the IV push. Flush volume is determined by type of infusion therapy being given. For non-viscous solutions use: Peripheral IV = 5 mL Midline or Central Line = 10 mL/lumen For viscous solutions (i.e. blood components, parenteral nutrition, contrast media, or after obtaining blood sample) use: Peripheral IV = 10 mL Midline or Central Line = 20 mL/lumen Problems Active Problems Problem Classification Problem Date Documented Date Episodic/Chronic Lewis (6 sources) Second degree burn of chest wall; Translations: [Corrosion of second degree of chest wall, initial encounter] Onset: 08-19-2024 08-19-2024 Episodic Skin and subcutaneous tissue infections (3 sources) Pilonidal cyst with abscess; Translations: [Abscess] Onset: 11-13-2023 Episodic Unclassified (2 sources) Poisoning by heroin, accidental (unintentional), init encntr / T40.1X1A(ICD-9) Onset: 07-26-2017 Unclassified (1 source) Nicotine dependence, unspecified, uncomplicated / F17.200(ICD-9) Onset: 07-26-2017 Unclassified (1 source) Oth places as the place of occurrence of [...] Name Value Interpretation Reference Range Facil ity Basic Metab w/rfx MGon 08-22 Anion gap [Moles/Vol] 12 mmol/L Normal 9-16 [facility] Comment on above: Performed By: #### C DP BMPX #### [facility] [address] [place] [address] [id number] [employer] Worker: Jose Turcios MD Calcium [Mass/Vol] 8.9 mg/dL Normal 8.6-10.4 [facility] Comment on above: Performed By: #### C DP, BMPX #### [facility] [address] [place] [address] [id number] [employer] Worker: Jose Turcios MD Chloride [Moles/Vol] 102 mmol/L Normal 98-107 [facility] Comment on above: Performed By: #### C DP, BMPX #### [address] [address] [employer] Worker: Jose Turcios MD CO2 [Moles/Vol] 20 mmol/L Normal 20-31 [facility] Comment on above: Performed By: #### C DP, BMPX #### [address] [address] [employer] Worker: Jose Turcios MD Creatinine [Mass/Vol] 0.7 mg/dL Normal 0.7-1.2 [facility] Comment on above: Performed By: #### C DP, BMPX #### [address] [address] [employer] Worker: Jose Turcios MD GFR/1.73 sq M.predicted among non-blacks MDRD (S/P/Bld) [Vol rate/Area] mL/min/{1.73_m2} Normal >60 [facility] Comment on above: Result Comment: These results are not intended for use in patients <18 years of age. eGFR results are calculated without a race factor using the 2020 CKD-EPI equation. Careful clinical correlation is recommended, particularly when comparing to results calculated using previous equations. The CKD-EPI equation is less accurate in patients with extremes of muscle mass, extra-renal metabolism of creatine, excessive creatine ingestion, or following therapy that affects renal tubular secretion. Performed By: #### C DP, BMPX #### [address] [address] [employer] Worker: Jose Turcios MD Glucose [Mass/Vol] 234 mg/dL High 74-99 [facility] Comment on above: Performed By: #### C DP, BMPX #### [facility] [address] [place] [address] [employer] Worker: Jose Turcios MD Potassium [Moles/Vol] 4.2 mmol/L Normal 3.7-5.3 [facility] Comment on above: Performed By: #### C DP, BMPX #### [facility] [address] [place] [address] [employer] Worker: Jose Turcios MD Sodium [Moles/Vol] 134 mmol/L Low 136-145 [facility] Comment on above: Performed By: #### C DP, BMPX #### [facility] [address] [place], [place] [id number] [employer] Worker: Jose Turcios MD Urea nitrogen [Mass/Vol] 17 mg/dL Normal 6-20 [facility] Comment on above: Performed By: #### C DP, BMPX #### [facility] [address] [place], [place] [id number] [employer] Worker: Jose Turcios MD Basic Metabolic Panel w/ Ref edmundo to MGon 08-22-2024 Anion gap [Moles/Vol] 12 mmol/L 9 - 16 mmol/L [facility] Calcium [Mass/Vol] 8.9 mg/dL 8.6 - 10. 4 mg/dL [facility] Chloride [Moles/Vol] 102 mmol/L 98 - 107 mmol/L [facility] CO2 [Moles/Vol] 20 mmol/L 20 - 31 mmol/L [facility] Creatinine [Mass/Vol] 0.7 mg/dL 0.7 - 1.2 mg/d L [facility] [employer] Est, Glom Filt Rate - PINF [facility] Comment on above: These results are not intended for use in patients <18 years of age. eGFR results are calculated without a race factor using the 2020 CKD-EPI equation. Careful clinical correlation is recommended, particularly when comparing to results calculated using previous equations. The CKD-EPI equation is less accurate in patients with extremes of muscle mass, extra-renal metabolism of creatine, excessive creatine ingestion, or following therapy that affects renal tubular secretion. Glucose [Mass/Vol] 234 mg/dL High 74 - 99 mg/dL [facility] Interpretation and review of laboratory results Abnormal [facility] Potassium [Moles/Vol] 4.2 mmol/L 3.7 - 5.3 mmol/L [facility] Sodium [Moles/Vol] 134 mmol/L Low 136 - 145 mmol/L [facility] Urea nitrogen [Mass/Vol] 17 mg/dL 6 - 20 mg/dL [facility] CBC with Auto Differentialon 08-22-2024 Basophils (Bld) [#/Vol] 0.05 10*3/uL [facility] Basophils/100 WBC (Bld) 1 % 0 - 2 % [facility] Eosinophils (Bld) [#/Vol] 0.79 10*3/uL High [facility] Eosinophils/100 WBC (Bld) 10 % High 1 - 4 % [facility] Erythrocyte distribution width (RBC) [Ratio] 12 % 11.8 - 14.4 % [facility] Hematocrit (Bld) [Volume fraction] 42.9 % 40.7 - 50.3 % [facility] Hemoglobin (Bld) [Mass/Vol] 14.1 g/dL 13.0 - 17.0 g/dL [facility] Immature granulocytes (Bld) [#/Vol] 0.03 10*3/uL [facility] Immature granulocytes/100 WBC (Bld) 0 % 0 [facility] Interpretation and review of laboratory results Abnormal [facility] Lymphocytes/100 WBC (Bld) 32 % 24 - 43 % [facility] Lymphocytes/100 WBC (Bld) 2.47 % [facility] MCH (RBC) [Entitic mass] 29.9 pg 25.2 - 33.5 pg [facility] MCHC (RBC) [Mass/Vol] 32.9 g/dL 28.4 - 34.8 g/dL [facility] MCV (RBC) [Entitic vol] 91.1 fL 82.6 - 102.9 fL [facility] Monocytes/100 WBC (Bld) 6 % 3 - 12 % [facility] Monocytes/100 WBC (Bld) 0.48 % [facility] Neutrophils/100 WBC (Bld) 51 % 36 - 65 % [facility] Nucleated RBC/100 WBC (Bld) [Ratio] 0 % 0.0 per 100 WBC [facility] Platelet mean volume (Bld) [Entitic vol] 9.6 fL 8.1 - 13.5 fL [facility] Platelets (Bld) [#/Vol] 172 10*3/uL [facility] RBC (Bld) [#/Vol] 4.71 10*6/uL 4.21 - 5.7 7 m/uL [facility] Segmented neutrophils/100 WBC (Bld) 3.89 % [facility] WBC other (Bld) [#/Vol] 7.7 [facility] CBC with Diffon 08-22-2024 Abs. Basophil 0.05 k/uL Normal 0.00-0.20 [facility] Comment on above: Performed By: #### C DP, BMPX #### [place] [address] [employer] Worker: Jose Turcios MD Abs.Imm.Granulocyte 0.03 k/uL Normal 0.00-0.30 [facility] Comment on above: Performed By: #### C DP, BMPX #### [place] [address] [employer] Worker: Jose Turcios MD Abs.Neutrophil (Seg) 3.89 k/uL Normal 1.50-8.10 [facility] Comment on above: Performed By: #### C DP, BMPX #### [facility] [address] [place] [address] [employer] Worker: Jose Turcios MD Basophils/100 WBC (Bld) 1 % Normal 0-2 [facility] Comment on above: Performed By: #### C DP, BMPX #### [facility] [address] [place] [address] [employer] Worker: Jose Turcios MD Eosinophils (Bld) [#/Vol] 0.79 10*3/uL High 0.00-0.44 [facility] Comment on above: Performed By: #### C DP, BMPX #### [facility] [address] [place] [id number] [employer] Worker: Jose Turcios MD Eosinophils/100 WBC (Bld) 10 % High 1-4 [facility] Comment on above: Performed By: #### C DP, BMPX #### [facility] [address] [place] [address] [employer] Worker: Jose Turcios MD Erythrocyte distribution width (RBC) [Ratio] 12.0 % Normal 11.8-14.4 [facility] Comment on above: Performed By: #### C DP, BMPX #### [facility] [address] [place] [address] [employer] Worker: Jose Turcios MD Hematocrit (Bld) [Volume fraction] 42.9 % Normal 40.7-50.3 [facility] Comment on above: Performed By: #### C DP, BMPX #### [place] [address] [employer] Worker: Jose Turcios MD Hemoglobin (Bld) [Mass/Vol] 14.1 g/dL Normal 13.0-17.0 [facility] Comment on above: Performed By: #### C DP, BMPX #### [place] [address] [employer] Worker: Jose Turcios MD Immature granulocytes/100 WBC (Bld) 0 % Normal 0 [facility] Comment on above: Performed By: #### C DP, BMPX #### [facility] [address] [place] [id number] [employer] Worker: Jose Turcios MD Lymphocytes (Bld) [#/Vol] 2.47 10*3/uL Normal 1.10-3.70 [facility] Comment on above: Performed By: #### C DP, BMPX #### [address] [address] [employer] Worker: Jose Turcios MD Lymphocytes/100 WBC (Bld) 32 % Normal 24-43 [facility] Comment on above: Performed By: #### C DP, BMPX #### [place] [address] [employer] Worker: Jose Turcios MD MCH (RBC) [Entitic mass] 29.9 pg Normal 25.2-33.5 [facility] Comment on above: Performed By: #### C DP, BMPX #### [place] [address] [employer] Worker: Jose Turcios MD MCHC (RBC) [Mass/Vol] 32.9 g/dL Normal 28.4-34.8 [facility] Comment on above: Performed By: #### C DP, BMPX #### [place] [address] [employer] Worker: Jose Turcios MD MCV (RBC) [Entitic vol] 91.1 fL Normal 82.6-102.9 [facility] Comment on above: Performed By: #### C DP, BMPX #### [place] [address] [employer] Worker: Jose Turcios MD Monocytes (Bld) [#/Vol] 0.48 10*3/uL Normal 0.10-1.20 [facility] Comment on above: Performed By: #### C DP, BMPX #### [place] [address] [employer] Worker: Jose Turcios MD Monocytes/100 WBC (Bld) 6 % Normal 3-12 [facility] Comment on above: Performed By: #### C DP, BMPX #### [address] [address] [employer] Worker: Jose Turcios MD Neutrophil (Seg) 51 % Normal 36-65 [facility] Comment on above: Performed By: #### C DP, BMPX #### [address] [address] [employer] Worker: Jose Turcios MD NRBC Automated 0.0 per 100 WBC Normal 0.0 [facility] Comment on above: Performed By: #### C DP, BMPX #### [address] [address] [employer] Worker: Jose Turcios MD Platelet mean volume (Bld) [Entitic vol] 9.6 fL Normal 8.1-13.5 [facility] Comment on above: Performed By: #### C DP, BMPX #### [address] [address] [employer] Worker: Jose Turcios MD Platelets (Bld) [#/Vol] 172 10*3/uL Normal 138-453 [facility] Comment on above: Performed By: #### C DP, BMPX #### [address] [address] [employer] Worker: Jose Turcios MD RBC (Bld) [#/Vol] 4.71 10*6/uL Normal 4.21-5.77 [facility] Comment on above: Performed By: #### C DP, BMPX #### [address] [address] [employer] Worker: Jose Turcios MD WBC (Bld) [#/Vol] 7.7 10*3/uL Normal 3.5-11.3 [facility] Comment on above: Performed By: #### C DP, BMPX #### [address] [address] [employer] Worker: Jose Turcios MD Glucose,Whole Bloodon 2024 Glucose [Mass/Vol] 121 mg/dL High 75-110 [facility] Glucose [Mass/Vol] 277 mg/dL High 75-110 [facility] POC Glucose Fingerstickon Glucose [Mass/Vol] 121 mg/dL High 75 - 110 mg/dL [facility] Interpretation and review of laboratory results Abnormal [facility] Glucose [Mass/Vol] 277 mg/dL High 75 - 110 mg/dL [facility] Interpretation and review of laboratory results Abnormal [facility] Basic Metab w/rfx MGon 08-21 Anion gap [Moles/Vol] 10 mmol/L Normal 9-16 [facility] Comment on above: Performed By: #### C DP, BMPX #### [facility] [address] [place] [address] [employer] Worker: Jose Turcios MD Calcium [Mass/Vol] 8.7 mg/dL Normal 8.6-10.4 [facility] Comment on above: Performed By: #### C DP, BMPX #### [facility] [address] [place] [address] [employer] Worker: Jose Turcios MD Chloride [Moles/Vol] 102 mmol/L Normal 98-107 [facility] Comment on above: Performed By: #### C DP, BMPX #### [facility] [address] [place] [address] [employer] Worker: Jose Turcios MD CO2 [Moles/Vol] 22 mmol/L Normal 20-31 [facility] Comment on above: Performed By: #### C DP, BMPX #### [facility] [address] [place] [address] [employer] Worker: Jose Turcios MD Creatinine [Mass/Vol] 0.7 mg/dL Normal 0.7-1.2 [facility] Comment on above: Performed By: #### C DP, BMPX #### [facility] [address] [place] [address] [employer] Worker: Jose Turcios MD Glucose [Mass/Vol] 215 mg/dL High 74-99 [facility] Comment on above: Performed By: #### C DP, BMPX #### [address] [address] [employer] Worker: Jose Turcios MD Potassium [Moles/Vol] 3.8 mmol/L Normal 3.7-5.3 [facility] Comment on above: Specimen hemolysis h as exceeded the interference as defined by Bhavesh. Value may be falsely increased. Suggest recollection if clinically indicated. Result Comment: Spec imen hemolysis has exceeded the interference as defined by Bhavesh. Value may be falsely increased. Suggest recollection if clinically indicated. Performed By: #### C DP, BMPX #### [facility] [address] [place] [id number] [employer] Worker: Jose Turcios MD Sodium [Moles/Vol] 134 mmol/L Low 136-145 [facility] Comment on above: Performed By: #### C DP, BMPX #### [facility] [address] [place] [address] [employer] Worker: Jose Turcios MD Urea nitrogen [Mass/Vol] 13 mg/dL Normal 6-20 [facility] Comment on above: Performed By: #### C DP, BMPX #### [facility] [address] [place] [address] [employer] Worker: Jose Turcios MD GFR/1.73 sq M.predicted among non-blacks MDRD (S/P/Bld) [Vol rate/Area] mL/min/{1.73_m2} Normal >60 [facility] Comment on above: Result Comment: These results are not intended for use in patients <18 years of age. eGFR results are calculated without a race factor using the 2020 CKD-EPI equation. Careful clinical correlation is recommended, particularly when comparing to results calculated using previous equations. The CKD-EPI equation is less accurate in patients with extremes of muscle mass, extra-renal metabolism of creatine, excessive creatine ingestion, or following therapy that affects renal tubular secretion. Performed By: #### C DP, BMPX #### [facility] [address] [place] [address] [employer] Worker: Jose Turcios MD Basic Metabolic Panel w/ Ref edmundo to MGon 08-21-2024 Doretha, Charles Bello - PINF [facility] Comment on above: These results are not intended for use in patients <18 years of age. eGFR results are calculated without a race factor using the 2020 CKD-EPI equation. Careful clinical correlation is recommended, particularly when comparing to results calculated using previous equations. The CKD-EPI equation is less accurate in patients with extremes of muscle mass, extra-renal metabolism of creatine, excessive creatine ingestion, or following therapy that affects renal tubular secretion. Interpretation and review of laboratory results Abnormal [facility] CBC with Auto Differentialon 08-21-2024 Basophils (Bld) [#/Vol] 0.03 10*3/uL [facility] Basophils/100 WBC (Bld) 0 % 0 - 2 % [facility] Eosinophils (Bld) [#/Vol] 0.71 10*3/uL High [facility] Eosinophils/100 WBC (Bld) 10 % High 1 - 4 % [facility] Erythrocyte distribution width (RBC) [Ratio] 12 % 11.8 - 14.4 % [facility] Hematocrit (Bld) [Volume fraction] 42.7 % 40.7 - 50.3 % [facility] Hemoglobin (Bld) [Mass/Vol] 14.3 g/dL 13.0 - 17.0 g/dL [facility] Immature granulocytes (Bld) [#/Vol] [facility] Immature granulocytes/100 WBC (Bld) 0 % 0 [facility] Interpretation and review of laboratory results Abnormal [facility] Lymphocytes/100 WBC (Bld) 26 % 24 - 43 % [facility] Lymphocytes/100 WBC (Bld) 1.83 % [facility] MCH (RBC) [Entitic mass] 30.2 pg 25.2 - 33.5 pg [facility] MCHC (RBC) [Mass/Vol] 33.5 g/dL 28.4 - 34.8 g/dL [facility] MCV (RBC) [Entitic vol] 90.1 fL 82.6 - 102.9 fL [facility] Monocytes/100 WBC (Bld) 6 % 3 - 12 % [facility] Monocytes/100 WBC (Bld) 0.42 % [facility] Neutrophils/100 WBC (Bld) 58 % 36 - 65 % [facility] Nucleated RBC/100 WBC (Bld) [Ratio] 0 % 0.0 per 100 WBC [facility] Platelet mean volume (Bld) [Entitic vol] 9.7 fL 8.1 - 13.5 fL [facility] Platelets (Bld) [#/Vol] 165 10*3/uL [facility] RBC (Bld) [#/Vol] 4.74 10*6/uL 4.21 - 5.7 7 m/uL [facility] Segmented neutrophils/100 WBC (Bld) 3.94 % [facility] WBC other (Bld) [#/Vol] 7 [facility] CBC with Diffon 08-21-2024 Abs. Basophil 0.03 k/uL Normal 0.00-0.20 [facility] Comment on above: Performed By: #### C DP

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
--- NOTE | 2024-10-31 07:42 | XR_ITS ---
The [address] [address] Patient Name: BASILIO CARTWRIGHT MRN: [id number] date: 1990 Sex: M Assigned Patient Location: ER Current Patient Location: ER Accession/Order Number: [id number] Exam Date: 10/31/2024 07:52 Report Date: 10/31/2024 07:59 At the request of: REBECA JOSE MD Procedure: XR elbow RT min 3V RIGHT ELBOW - 3 VIEWS CLINICAL HISTORY: laceration at the posterior right elbow COMPARISON: None Attempted AP, lateral and oblique views were obtained. There is no acute fracture or dislocation. There is no elbow effusion. A large soft tissue laceration is present at the posterior elbow. There are also subcutaneous air which also tracks into the antecubital region. There is radiopaque density which appears to be superficial on the skin at the posterior upper forearm. There is also indeterminate radiopaque density which projects at the volar lateral elbow on the AP view. XR/XR elbow RT min 3V IMPRESSION: NO ACUTE BONY INJURY. LACERATION WITH SOFT TISSUE AIR. Impression dictated by: Haily Daniel M.D. 10/31/2024 7:59 AM Dictation Location: [place] [address] Electronically authenticated by: [id number] Y Date: 10/31/2024 07:59
[2024-10-31] MEDS: LIDOCAINE HCL 1% 100 MG/10 ML MDV INJ ×3 (07:44→08:44)
[2024-10-31] MEDS: CEFAZOLIN SODIUM 1,000 MG, WATER FOR INJECTION,STERILE 2.5 ML IM (08:47)
== END 2024-10-31 09:24 | disposition home or self-care (01) ==
PROVIDERS: Emergency Provider Emergency Medicine
DX: S51.011A Laceration without foreign body of right elbow, initial encounter (principal); W22.8XXA Striking against or struck by other objects, initial encounter
CPT/HCPCS: 12004; 73080; 99283; J0690